=== PATIENT | female | born 1985 | race Hispanic/Latino ===

== ENCOUNTER 2020-11-26 08:45 | Day surgery (SDC) | payer BC ==
[2020-11-16 15:54] LABS: BASOPHILS % (AUTO) 0.8 % (0.0-5.0); EOSINOPHILS % (AUTO) 2.2 % (0.0-8.0); HEMATOCRIT 39.9 % (36-48); LYMPHOCYTES % (AUTO) 24.1 % (21.0-51.0); MEAN CORPUSCULAR HEMOGLOBIN 31.1 pg (27.0-33.0); MEAN CORPUSCULAR HGB CONC 32.6 g/dL (32.0-36.0); MEAN CORPUSCULAR VOLUME 95.5 fL (79-99); NEUTROPHILS % (AUTO) 65.4 % (40.0-77.0); PLATELET COUNT (AUTO) 272 K/uL (130-400); RED BLOOD CELL COUNT(AUTO) 4.18 MIL/uL (4.00-5.50); RED CELL DISTRIBUTION WIDTH 12.2 % (11.0-15.5); WHITE BLOOD COUNT (AUTO) 8.7 K/uL (4.8-10.8)
[2020-11-16 16:02] LABS: CREATININE 0.7 mg/dL (0.5-1.5); POTASSIUM 4.1 mmol/L (3.5-5.1)
[2020-11-23 10:15] VITALS: BP 104/63
[2020-11-26] VITALS (18 sets, daily range): BP systolic 105–123; BP diastolic 60–79
[~2020-11-26] VITALS: Ht 152.4 cm; Wt 78.0 kg
[~2020-11-26 08:45] MED LIST: ATOR10TA69 PO; GABA-529 PO
[2020-11-26] MEDS ORDERED: LACTATED RINGERS 1000ML 1,000 ML IV ONE (09:15)
[2020-11-26] MEDS: CEFAZOLIN SODIUM 1 GM VIAL ONE ×2 (09:23→12:46)
[2020-11-26] MEDS ORDERED: BUPIVACAINE/PF 0.5% 30ML VIAL ONE (12:12)
[2020-11-26] MEDS ORDERED: DEXAMETHASONE SOD PHOSPHATE 10MG/ML 1ML VIAL ONE (12:29)
[2020-11-26] MEDS ORDERED: LIDOCAINE PF 2% 5ML ABBOJECT ONE (12:29)
[2020-11-26] MEDS ORDERED: GLYCOPYRROLATE 1 MG/5 ML SYRINGE ONE (12:29)
[2020-11-26] MEDS ORDERED: NEOSTIGMINE 5MG/5ML SYR IV ONE (12:30)
[2020-11-26] MEDS ORDERED: MIDAZOLAM HCL 1 MG/ML 2ML VIAL ONE (12:30)
[2020-11-26] MEDS ORDERED: PROPOFOL 10 MG/ML 20ML VIAL IV ONE (12:30)
[2020-11-26] MEDS ORDERED: ROCURONIUM 10MG/1ML SYR 10 MG/ML ML ONE (12:30)
[2020-11-26] MEDS ORDERED: ONDANSETRON HCL 4 MG/2 ML VIAL ONE (12:30)
[2020-11-26] MEDS ORDERED: MEPERIDINE-PF 25 MG/ML SYG ONE ×3 (12:31→14:00)
[2020-11-26] MEDS ORDERED: FENTANYL CITRATE PF 50 MCG/1 ML 5ML AMP IV ONE (12:31)
[2020-11-26] MEDS ORDERED: PHENYLEPHRINE HCL 10 MG/ML 1ML VIAL IV ONE (12:51)
[2020-11-26] MEDS ORDERED: ACETAMINOPHEN-CODEINE 300/30MG TAB PO ONE (15:15)
== END 2020-11-26 15:57 | disposition home or self-care (01) ==
LOC: DAH 08:45
PROVIDERS: ATTEND Surgery
DX: K80.10 Calculus of gallbladder with chronic cholecystitis without obstruction (principal); Z20.822 Contact with and (suspected) exposure to COVID-19; Z79.899 Other long term (current) drug therapy; Z98.890 Other specified postprocedural states
CPT/HCPCS: 47562; S2900; 36415; 80048; 84703; 85025; C9803; J0690; J1100; J2001; J2175; J2250; J2370; J2405; J2704; J2710; J3010; J3490; J7030; J7120; U0003